=== PATIENT | male | born 1955 | race Two or more races ===

== ENCOUNTER 2024-02-20 13:00 | Inpatient (IN) | payer OTHER, MEDICAID ==
[~2024-02-20] VITALS: Ht 165.1 cm; Wt 65.3 kg
[2024-02-20] MEDS ORDERED: DILTIAZEM HCL 50 MG IV ONE (13:29)
[2024-02-20] MEDS: DILTIAZEM HCL 25 MG IV IV ONE (13:35)
[2024-02-20 13:42] LABS: BASOPHILS # (AUTO) 0.1 K/uL (0.0-0.2); BASOPHILS % (AUTO) 0.8 % (0.0-2.0); EOSINOPHILS # (AUTO) 0.1 K/uL (0.0-0.7); EOSINOPHILS % (AUTO) 1.4 % (0.0-6.0); HEMATOCRIT 40 % (39-51); HEMOGLOBIN 12.9 g/dL (13.5-17.5); LYMPHOCYTES # (AUTO) 3.8 K/uL (0.8-4.8); LYMPHOCYTES % (AUTO) 36.9 % (20.0-44.0); MEAN CORPUSCULAR HEMOGLOBIN 30 PG (26.0-33.0); MEAN CORPUSCULAR HGB CONC 33 g/dl (31.0-36.0); MEAN CORPUSCULAR VOLUME 93 fL (80-96); MONOCYTES # (AUTO) 1.1 K/uL (0.1-1.30); MONOCYTES % (AUTO) 10.8 % (2.0-12.0); NEUTROPHILS # (AUTO) 5.1 K/uL (1.8-8.9); NEUTROPHILS % (AUTO) 50.1 % (43.0-81.0); PLATELET COUNT (AUTO) 265 K/uL (150-450); RED BLOOD CELL COUNT(AUTO) 4.24 MIL/uL (4.5-6.0); RED CELL DISTRIBUTION WIDTH 12.9 % (11.5-15.0); WHITE BLOOD COUNT (AUTO) 10.3 K/uL (4.3-11.0)
[2024-02-20] MEDS ORDERED: AMLO5TAB4 PO (13:56)
[2024-02-20 13:58] LABS: CALCIUM, SERUM 9.6 mg/dL (8.5-10.1); CARBON DIOXIDE 27 mmol/L (21-32); CHLORIDE 105 mmol/L (98-107); CREATININE 1.1 mg/dL (0.6-1.3); GLUCOSE 99 mg/dL (74-106); MAGNESIUM 1.9 mg/dL (1.8-2.4); SODIUM SERUM 140 mmol/L (136-145); UREA NITROGEN, BLOOD 19 mg/dL (7-18)
[2024-02-20] MEDS ORDERED: AMIODARONE 150 MG/3 ML VIAL IV ONE (14:00)
[2024-02-20 14:12] LABS: NT-PRO BNP 5191 pg/mL (0-125)
[2024-02-20] MEDS: ASPIRIN EC 325 MG TABLET.DR PO ONE (14:38)
[2024-02-20 14:45] LABS: THYROID STIMULATING HORMONE 3.26 uIU/mL (0.358-3.74)
[2024-02-20] MEDS: AMIODARONE 150 MG in IV D5W 100 ML IV ONE (15:50)
[2024-02-20 16:00] VITALS: BP 148/83; TEMP 98.1; O2SAT 95
[2024-02-20] MEDS: DILTIAZEM HCL IV 125 MG in IV D5W 100 ML IV ONE (16:56)
[2024-02-20] MEDS ORDERED: ZOLPIDEM TARTRATE 5 MG TABLET PO PRN (17:00)
[2024-02-20] MEDS ORDERED: ACETAMINOPHEN 325 MG TABLET PO PRN (17:00)
[2024-02-20] MEDS: APIXABAN 5 MG TABLET PO SCH (17:57)
[2024-02-20] MEDS: DILTIAZEM HCL 30 MG TABLET PO SCH (18:28)
[2024-02-20] MEDS: DIGOXIN INJ 0.5 MG/2 ML AMPUL IV ONE (19:02)
[2024-02-20 20:00] VITALS: BP 141/66; TEMP 97.7; O2SAT 94
[2024-02-21] VITALS (8 sets, daily range): BP systolic 117–141; BP diastolic 55–86; TEMP 97.5–98.3; O2SAT 93–97
[2024-02-21 07:07] LABS: BASOPHILS # (AUTO) 0.1 K/uL (0.0-0.2); BASOPHILS % (AUTO) 1.2 % (0.0-2.0); EOSINOPHILS # (AUTO) 0.3 K/uL (0.0-0.7); EOSINOPHILS % (AUTO) 2.7 % (0.0-6.0); HEMATOCRIT 34 % (39-51); HEMOGLOBIN 11.2 g/dL (13.5-17.5); LYMPHOCYTES # (AUTO) 4.4 K/uL (0.8-4.8); LYMPHOCYTES % (AUTO) 37.7 % (20.0-44.0); MEAN CORPUSCULAR HEMOGLOBIN 31 PG (26.0-33.0); MEAN CORPUSCULAR HGB CONC 33 g/dl (31.0-36.0); MEAN CORPUSCULAR VOLUME 94 fL (80-96); MONOCYTES # (AUTO) 1.1 K/uL (0.1-1.30); MONOCYTES % (AUTO) 9.7 % (2.0-12.0); NEUTROPHILS # (AUTO) 5.6 K/uL (1.8-8.9); NEUTROPHILS % (AUTO) 48.7 % (43.0-81.0); PLATELET COUNT (AUTO) 243 K/uL (150-450); RED BLOOD CELL COUNT(AUTO) 3.58 MIL/uL (4.5-6.0); RED CELL DISTRIBUTION WIDTH 12.7 % (11.5-15.0); WHITE BLOOD COUNT (AUTO) 11.6 K/uL (4.3-11.0)
[2024-02-21 07:08] LABS: CALCIUM, SERUM 8.7 mg/dL (8.5-10.1); CREATININE 0.8 mg/dL (0.6-1.3); POTASSIUM 3.4 mmol/L (3.5-5.1)
[2024-02-21 07:11] LABS: ALBUMIN 2.8 g/dL (3.4-5.0); BILIRUBIN,TOTAL 0.7 mg/dL (0.2-1.0); TOTAL PROTEIN, SERUM 6.6 g/dL (6.4-8.2)
[2024-02-21 07:45] LABS: THYROID STIMULATING HORMONE 1.93 uIU/mL (0.358-3.74)
[2024-02-21] MEDS: POTASSIUM CHLORIDE 20 MEQ TAB.PRT.SR PO SCH (10:40)
[2024-02-21] MEDS ORDERED: POTASSIUM CHLORIDE 20 MEQ TAB.PRT.SR PO ONE (12:00)
[2024-02-21] MEDS: DILTIAZEM HCL CD 240 MG PO SCH (12:00)
[2024-02-21] MEDS: AMIODARONE 150 MG in IV D5W 100 ML IV ONE (12:56)
[2024-02-21] MEDS: AMIODARONE 450 MG in IV D5W 241 ML IV PRN (13:02)
[2024-02-22] VITALS: BP 131/90; TEMP 97.7; O2SAT 96
[2024-02-22 04:00] VITALS: BP 135/85; TEMP 98; O2SAT 96
[2024-02-22 07:30] LABS: CALCIUM, SERUM 8.4 mg/dL (8.5-10.1); POTASSIUM 3.9 mmol/L (3.5-5.1)
[2024-02-22 08:00] VITALS: BP 131/86; TEMP 98.8; O2SAT 96
[2024-02-22] MEDS: METOPROLOL TARTRATE 50 MG TABLET PO SCH (08:37)
[2024-02-22] MEDS: ATORVASTATIN 10 MG TABLET PO SCH (08:38)
[2024-02-22 10:14] LABS: THYROID STIMULATING HORMONE 4.13 uIU/mL (0.358-3.74)
[2024-02-22 12:00] VITALS: BP 106/86; TEMP 97.7; O2SAT 96
[2024-02-22 16:00] VITALS: BP 136/70; TEMP 97.9; O2SAT 96
[2024-02-22] MEDS: AMIODARONE HCL 200 MG TABLET PO SCH (17:23)
[2024-02-22 20:00] VITALS: BP 150/80; TEMP 97.9; O2SAT 95
[2024-02-23] VITALS (7 sets, daily range): BP systolic 113–150; BP diastolic 51–72; TEMP 97.7–98.3; O2SAT 91–100
[2024-02-23] MEDS ORDERED: AMIO200T7 PO (08:24)
[2024-02-23] MEDS ORDERED: APIX5TAB PO (08:24)
[2024-02-23] MEDS: METOPROLOL SUCCINATE 50 MG TAB.SR.24H PO ONE (08:33)
[2024-02-23] MEDS ORDERED: IV NS 0.9% 250 ML IV ONE ×2 (11:12→15:13)
[2024-02-23] MEDS ORDERED: IOHEXOL-350 100 ML VIAL IV ONE (11:12)
[2024-02-23] MEDS: METOPROLOL TARTRATE INJ 5 MG/5 ML AMPUL IVP PRN (11:25)
[2024-02-23] MEDS ORDERED: NITROGLYCERIN 0.4 MG/TAB BOTTLE ONE (11:29)
[2024-02-23] MEDS: NITROGLYCERIN 0.4 MG/TAB BOTTLE SL ONE (11:35)
[2024-02-23] MEDS ORDERED: IOHEXOL-300 100 ML VIAL IV ONE (15:13)
[2024-02-23] MEDS: SOTALOL HCL 80 MG TABLET PO SCH (16:34)
[2024-02-23] MEDS: ENOXAPARIN SODIUM 60 MG/0.6 ML DISP.SYRIN SQ SCH (21:00)
[2024-02-24] VITALS (8 sets, daily range): BP systolic 124–157; BP diastolic 62–81; TEMP 97.5–98.8; O2SAT 92–97
[2024-02-24] MEDS ORDERED: ALBUTEROL HALF STRENGTH 1.25 MG/3 ML VIAL.NEB NEB PRN (08:00)
[2024-02-24] MEDS ORDERED: IPRATROPIUM NEB FS 0.5 MG/2.5 ML AMPUL.NEB NEB PRN (08:00)
[2024-02-24] MEDS ORDERED: DRON400T6 PO (09:16)
[2024-02-24] MEDS ORDERED: AMOX-427 PO (09:16)
[2024-02-24] MEDS ORDERED: ATOR10TA PO (09:20)
[2024-02-24] MEDS ORDERED: FUROSEMIDE 40 MG/4 ML VIAL IV SCH (10:00)
[2024-02-24] MEDS: AMOX/CLAVULANATE 875 MG TABLET PO SCH (10:59)
[2024-02-24] MEDS: DRONEDARONE HYDROCHLORIDE 400 MG TABLET PO SCH (10:59)
[2024-02-24] MEDS: FUROSEMIDE 40 MG TABLET PO SCH (11:11)
[2024-02-24 11:22] LABS: BASOPHILS # (AUTO) 0.1 K/uL (0.0-0.2); BASOPHILS % (AUTO) 0.7 % (0.0-2.0); EOSINOPHILS % (AUTO) 0.1 % (0.0-6.0); HEMATOCRIT 39 % (39-51); HEMOGLOBIN 12.5 g/dL (13.5-17.5); LYMPHOCYTES # (AUTO) 3.4 K/uL (0.8-4.8); LYMPHOCYTES % (AUTO) 16.9 % (20.0-44.0); MEAN CORPUSCULAR HEMOGLOBIN 30 PG (26.0-33.0); MEAN CORPUSCULAR HGB CONC 32 g/dl (31.0-36.0); MEAN CORPUSCULAR VOLUME 95 fL (80-96); MONOCYTES # (AUTO) 1.2 K/uL (0.1-1.30); MONOCYTES % (AUTO) 6.1 % (2.0-12.0); NEUTROPHILS # (AUTO) 15.3 K/uL (1.8-8.9); NEUTROPHILS % (AUTO) 76.2 % (43.0-81.0); PLATELET COUNT (AUTO) 282 K/uL (150-450); RED BLOOD CELL COUNT(AUTO) 4.12 MIL/uL (4.5-6.0); RED CELL DISTRIBUTION WIDTH 13.1 % (11.5-15.0); WHITE BLOOD COUNT (AUTO) 20.2 K/uL (4.3-11.0)
[2024-02-24 11:28] LABS: CALCIUM, SERUM 8.6 mg/dL (8.5-10.1); CREATININE 1.2 mg/dL (0.6-1.3); POTASSIUM 3.8 mmol/L (3.5-5.1)
[2024-02-25] VITALS: BP 134/65; TEMP 98; O2SAT 90
[2024-02-25 04:00] VITALS: BP 129/62; TEMP 97.8; O2SAT 90
[2024-02-25 07:58] LABS: BASOPHILS # (AUTO) 0.2 K/uL (0.0-0.2); BASOPHILS % (AUTO) 1.1 % (0.0-2.0); EOSINOPHILS # (AUTO) 0.1 K/uL (0.0-0.7); EOSINOPHILS % (AUTO) 0.6 % (0.0-6.0); HEMATOCRIT 39 % (39-51); HEMOGLOBIN 12.5 g/dL (13.5-17.5); LYMPHOCYTES # (AUTO) 4.4 K/uL (0.8-4.8); LYMPHOCYTES % (AUTO) 27.7 % (20.0-44.0); MEAN CORPUSCULAR HEMOGLOBIN 30 PG (26.0-33.0); MEAN CORPUSCULAR HGB CONC 32 g/dl (31.0-36.0); MEAN CORPUSCULAR VOLUME 94 fL (80-96); MONOCYTES # (AUTO) 1.4 K/uL (0.1-1.30); MONOCYTES % (AUTO) 8.7 % (2.0-12.0); NEUTROPHILS # (AUTO) 9.8 K/uL (1.8-8.9); NEUTROPHILS % (AUTO) 61.9 % (43.0-81.0); PLATELET COUNT (AUTO) 276 K/uL (150-450); RED BLOOD CELL COUNT(AUTO) 4.13 MIL/uL (4.5-6.0); RED CELL DISTRIBUTION WIDTH 12.7 % (11.5-15.0); WHITE BLOOD COUNT (AUTO) 15.8 K/uL (4.3-11.0)
[2024-02-25 08:00] VITALS: BP 134/61; TEMP 98.2; O2SAT 92
[2024-02-25] MEDS ORDERED: METR500T PO (08:30)
[2024-02-25 09:09] LABS: CALCIUM, SERUM 8.9 mg/dL (8.5-10.1); CREATININE 1.3 mg/dL (0.6-1.3); POTASSIUM 3.5 mmol/L (3.5-5.1)
[2024-02-25 09:21] LABS: THYROID STIMULATING HORMONE 4.14 uIU/mL (0.358-3.74)
[2024-02-25] MEDS: METRONIDAZOLE 250 MG TABLET PO SCH (09:38)
[2024-02-26 08:11] LABS: FOLIC ACID 12.6 ng/mL (>3.0); FREE KAPPA LT CHAINS SERUM 33.7 mg/L (3.3-19.4); IMMUNOGLOBULIN A, SERUM 67 mg/dL (61-437); IMMUNOGLOBULIN G, SERUM 677 mg/dL (603-1613); IMMUNOGLOBULIN M, SERUM 1247 mg/dL (20-172); KAPPA/LAMBDA RATIO SERUM 3.06 (0.26-1.65)
[2024-02-27 06:07] LABS: *SPE A/G RATIO 0.8 (0.7-1.7); *SPE ALBUMIN 2.8 g/dL (2.9-4.4); *SPE ALPHA-1-GLOBULIN 0.3 g/dL (0.0-0.4); *SPE ALPHA-2-GLOBULIN 0.8 g/dL (0.4-1.0); *SPE BETA GLOBULIN 0.8 g/dL (0.7-1.3); *SPE GLOBULIN, TOTAL 3.5 g/dL (2.2-3.9); *SPE M-SPIKE 1.1 g/dL (Not Observed); *SPE PROTEIN TOTAL 6.3 g/dL (6.0-8.5); *SPEGAMMA GLOBULIN 1.6 g/dL (0.4-1.8)
== END 2024-02-25 10:53 | disposition home health service (06) | DRG 280 ==
LOC: ER 13:34 → TELE-TD 17:00 → TELE1 02-22 14:27
PROVIDERS: ADMIT Internal Medicine; ATTEND Internal Medicine
DX: I48.91 Unspecified atrial fibrillation (principal); I21.A1 Myocardial infarction type 2; J69.0 Pneumonitis due to inhalation of food and vomit; J96.00 Acute respiratory failure, unspecified whether with hypoxia or hypercapnia; C64.1 Malignant neoplasm of right kidney, except renal pelvis; C78.01 Secondary malignant neoplasm of right lung; C78.02 Secondary malignant neoplasm of left lung; I11.0 Hypertensive heart disease with heart failure; I50.9 Heart failure, unspecified; I82.220 Acute embolism and thrombosis of inferior vena cava; I27.20 Pulmonary hypertension, unspecified; R16.0 Hepatomegaly, not elsewhere classified; R91.8 Other nonspecific abnormal finding of lung field; K80.20 Calculus of gallbladder without cholecystitis without obstruction; N40.0 Benign prostatic hyperplasia without lower urinary tract symptoms; D48.19 Other specified neoplasm of uncertain behavior of connective and other soft tissue
CPT/HCPCS: 36415; 71045-TC; 75574; 80048-TC; 80053-TC; 80061-TC; 82378; 82607-TC; 82728-TC; 82784; 83540-TC; 83615-TC; 83735-TC; 83880; 84155; 84165; 84439-TC; 84443-TC; 84484-TC; 85025-TC; 86334; 92526; 92611-TC; 93307-TC; A4223; G0378; J0282; J1160; J1650; J3490; J7050; J7060; Q9967

== ENCOUNTER 2024-02-27 20:27 | Emergency (ER) | payer OTHER, MEDICAID ==
[~2024-02-27] VITALS: Ht 165.1 cm; Wt 63.5 kg
[~2024-02-27 20:27] MED LIST: AMOX-427 PO; ATOR10TA PO; DRON400T6 PO; METR500T PO
[2024-02-27 22:47] LABS: BASOPHILS # (AUTO) 0.1 K/uL (0.0-0.2); EOSINOPHILS # (AUTO) 0.2 K/uL (0.0-0.7); EOSINOPHILS % (AUTO) 1.3 % (0.0-6.0); HEMATOCRIT 40 % (39-51); HEMOGLOBIN 12.9 g/dL (13.5-17.5); LYMPHOCYTES # (AUTO) 4.6 K/uL (0.8-4.8); LYMPHOCYTES % (AUTO) 31.5 % (20.0-44.0); MEAN CORPUSCULAR HEMOGLOBIN 31 PG (26.0-33.0); MEAN CORPUSCULAR HGB CONC 33 g/dl (31.0-36.0); MEAN CORPUSCULAR VOLUME 94 fL (80-96); MONOCYTES # (AUTO) 1.7 K/uL (0.1-1.30); MONOCYTES % (AUTO) 11.6 % (2.0-12.0); NEUTROPHILS % (AUTO) 54.6 % (43.0-81.0); PLATELET COUNT (AUTO) 304 K/uL (150-450); RED BLOOD CELL COUNT(AUTO) 4.19 MIL/uL (4.5-6.0); RED CELL DISTRIBUTION WIDTH 13.1 % (11.5-15.0); WHITE BLOOD COUNT (AUTO) 14.6 K/uL (4.3-11.0)
[2024-02-27 22:56] LABS: CALCIUM, SERUM 9.5 mg/dL (8.5-10.1); CREATININE 1.3 mg/dL (0.6-1.3); POTASSIUM 4.8 mmol/L (3.5-5.1)
[2024-02-27 23:42] VITALS: BP 142/80; TEMP 98.1; O2SAT 98
== END 2024-02-27 23:43 | disposition home or self-care (01) ==
LOC: EDUNIT# 20:27 → ER 20:39
DX: I10 Essential (primary) hypertension (principal); Z79.52 Long term (current) use of systemic steroids; Z79.899 Other long term (current) drug therapy
CPT/HCPCS: 36415; 80048-TC; 85025-TC